=== PATIENT | female | born 1975 | race Caucasian/White ===

== ENCOUNTER 2019-02-02 21:47 | Emergency (ER) | payer SELFPAY ==
[2019-02-02 23:47] LABS: URINE AMPHETAMINES SCREEN NEGATIVE; URINE BARBITURATES SCREEN NEGATIVE; URINE BENZODIAZEPINES SCREEN UNCONFIRMED POSITIVE; URINE COCAINE SCREEN NEGATIVE; URINE MARIJUANA (THC) SCREEN UNCONFIRMED POSITIVE; URINE METHADONE SCREEN NEGATIVE; URINE PHENCYCLIDINE SCREEN NEGATIVE
[2019-02-03 00:05] LABS: APPEARANCE,URINE SLIGHTLY-CLOUDY; BILIRUBIN,URINE NEGATIVE (NEGATIVE); COLOR,URINE YELLOW; GLUCOSE, URINE NEGATIVE (NEGATIVE); KETONES,URINE 20 mg/dL (NEGATIVE); LEUKOCYTE ESTERASE,URINE NEGATIVE (NEGATIVE); NITRITE,URINE NEGATIVE (NEGATIVE); PROTEIN,URINE 30 mg/dL (NEGATIVE); URINE SPECIFIC GRAVITY 1.029
[2019-02-03] MEDS ORDERED: CLINDAMYCIN HCL 150 MG CAPSULE PO ONE (00:42)
--- NOTE | 2019-02-03 00:43 | ER Document Report ---
ED General - General Chief Complaint: Nausea/Vomiting Stated Complaint: WITHDRAWAL Time Seen by Provider: 02/02/19 23:30 Notes: Patient is a 43-year-old female with past medical history of anxiety, depression, benzodiazepine dependence who presents with complaints of dental pain as well as benzodiazepine withdrawal. Patient reports that she tried to taper herself off of clonazepam over the course the past 2 weeks. States that she used to take 1 mg 3 times daily clonazepam, slowly wean down to 0.5 mg daily and had her last dose 3 days ago. States that since that time she has felt tremulous, had nausea, body aches and felt very unwell. Symptoms started gradually, have been worsening since onset. Nothing seems to improve or worsen her symptoms. States this feels very similar to when she has withdrawal from benzodiazepines in the past. Denies any history of seizures with since it has been withdrawal and has not had a seizure since last dose. Patient also reports the concerns about dental caries. States that she has diffusely poor dentition, complaining of some throbbing, aching, moderate to severe, constant pain in her right upper posterior molars. Denies difficulty breathing or swallowing. Pain is worsened by eating or drinking. Has not trying to improve the pain. Has not seen a dentist regarding this concern. TRAVEL OUTSIDE OF THE [place] IN LAST 30 DAYS: No - Related Data Allergies/Adverse Reactions: Penicillins Allergy (Mild, Verified 02/02/19 21:50) Past Medical History - General Information source: Patient - Social History Smoking Status: Current Every Day Smoker Frequency of alcohol use: Occasional Drug Abuse: Other Lives with: Friend Family History: Reviewed & Not Pertinent Patient has suicidal ideation: No Patient has homicidal ideation: No Renal/ Medical History: Denies: Hx Peritoneal Dialysis Review of Systems - Review of Systems Notes: Constitutional: Negative for fever. HENT: Negative for sore throat. Positive for dental pain Eyes: Negative for visual changes. Cardiovascular: Negative for chest pain. Respiratory: Negative for shortness of breath. Gastrointestinal: Negative for abdominal pain, positive for nausea Genitourinary: Negative for dysuria. Musculoskeletal: Negative for back pain. Skin: Negative for rash. Neurological: Negative for headaches, positive for tremulousness 10 point ROS negative except as marked above and in HPI. Physical Exam - Vital signs Vitals: Temp Pulse Resp BP Pulse Ox 98.4 F 83 16 114/70 97 02/02/19 22:03 02/02/19 22:03 02/02/19 22:03 02/02/19 22:03 02/02/19 22:03 Interpretation: Normal Notes: PHYSICAL EXAMINATION: GENERAL: Somewhat uncomfortable but in no acute distress HEAD: Atraumatic, normocephalic. EYES: Pupils equal round and reactive to light, extraocular movements intact, sclera anicteric, conjunctiva are normal. ENT: nares patent, oropharynx clear without exudates. Moist mucous membranes. NECK: Normal range of motion, supple without lymphadenopathy LUNGS: Breath sounds clear to auscultation bilaterally and equal. No wheezes rales or rhonchi. HEART: Regular rate and rhythm without murmurs ABDOMEN: Soft, nontender, normoactive bowel sounds. No guarding, no rebound. No masses appreciated. EXTREMITIES: Normal range of motion, no pitting or edema. No cyanosis. NEUROLOGICAL: No focal neurological deficits. Moves all extremities spontaneously and on command. PSYCH: Moderately anxious, somewhat tremulous SKIN: Warm, Dry, normal turgor, no rashes or lesions noted. Course - Re-evaluation Re-evalutation: 02/03/19 00:42 Presentation is most consistent with likely an infected tooth. Airway is patent. Vitals within normal limits. Patient is able swallow without any difficulty. There is no significant facial swelling. No evidence of Negrito angina, apical abscess, or airway obstruction. Patient will be started on antibiotics. I've instructed to follow-up with dentistry as earliest ability for definitive management. Patient also reports that she has been shaky, felt unwell since discontinuing clonazepam after a gradual taper over the past 2 weeks. Last dose was 3 days ago. Patient has not had seizure. Mildly tremulous on exam but otherwise unremarkable. No evidence of autonomic instability. Patient does desire to come off benzo diazepam's and I have advised her to continue working through withdrawal symptoms by conservative management. At this time will discharge with return precautions and follow-up recommendations. Verbal discharge instructions given a the bedside and opportunity for questions given. Medication warnings reviewed. Patient is in agreement with this plan and has verbalized understanding of return precautions and the need for primary care follow-up in the next 24-72 hours. - Vital Signs Vital signs: Temp Pulse Resp BP Pulse Ox 98.0 F 52 L 18 134/77 H 100 04/07/19 00:52 02/03/19 00:52 02/03/19 00:52 02/03/19 00:52 02/03/19 00:52 - Laboratory Laboratory results interpreted by me: 02/02/19 22:10 Urine Protein 30 H Urine Ketones 20 H Urine Blood SMALL H Urine Urobilinogen 4.0 H Discharge - Discharge Clinical Impression: Dental caries Benzodiazepine withdrawal Qualifiers: Complication of substance-induced condition: uncomplicated Qualified Code(s): F13.230 - Sedative, hypnotic or anxiolytic dependence with withdrawal, uncomplicated Condition: Good Disposition: HOME, SELF-CARE Additional Instructions: You were seen today for withdrawal from clonazepam. Your symptoms were likely last for 1-2 weeks and should gradually improve over that time. Please return if you develop a seizure, severe vomiting, uncontrollable shaking, or any other symptoms that are concerning to you. You have been seen for dental pain. It is very important that you follow-up with a dentist for definitive care. Please return if you develop fever greater than 101, swelling in your face, vomiting, difficulty breathing or swallowing, or any other symptoms that are concerning to you. For pain you should take ibuprofen 600 mg every 6 hours as needed. Prescriptions: Clindamycin HCl 300 mg PO TID #30 capsule Forms: Return to Work
[2019-02-03 00:53] VITALS: BP 134/77
== END 2019-02-03 00:56 | disposition home or self-care (01) ==
LOC: ER 21:47
DX: K02.9 Dental caries, unspecified (principal); F13.230 Sedative, hypnotic or anxiolytic dependence with withdrawal, uncomplicated; R11.2 Nausea with vomiting, unspecified; F17.200 Nicotine dependence, unspecified, uncomplicated; Z88.0 Allergy status to penicillin
CPT/HCPCS: 80307; 81001; 81025; 99284